=== PATIENT | male | born 1985 | race Caucasian/White ===

== ENCOUNTER 2025-01-23 13:45 | Emergency (ER) | payer OTHER ==
[2025-01-23 13:54] VITALS: RESP 18; TEMP 98.3
--- NOTE | 2025-01-23 14:10 | ED ---
Wound/Laceration HPI - General Chief Complaint: Wound/Laceration Stated Complaint: Facial Injury Time Seen by Provider: 01/23/25 13:57 Source: patient, EMS, RN notes reviewed Mode of arrival: EMS Limitations: no limitations - History of Present Illness Initial Comments: This is a 39-year-old male with history of daily EtOH use presenting for facial injury/pain (12/08) occurring 30 minutes prior to ER arrival. Patient states a 9 stack of sheet-metal slid forward at work, striking him on the right side of the face without loss of consciousness. Endorses contusion/pain around right eye, nose and upper lip. Denies headache, neck pain, other significant injury. Denies use of blood thinners. States tetanus vaccination is not up-to-date. Onset/Timin -: minutes(s) Location: face Place: work Context: accidental Associated Symptoms: pain Treatments Prior to Arrival: bandage, cervical collar - Related Data Previous Rx's Medication Instructions Recorded Cephalexin [Keflex] 500 mg PO Q6HR 1 Days #40 cap 01/23/25 Ibuprofen [Motrin] 800 mg PO Q8HR PRN #30 tab 01/23/25 Allergies Allergy/AdvReac Type Severity Reaction Status Date / Time No Known Allergies Allergy Verified 01/23/25 13:54 Review of Systems ROS Statement: Those systems with pertinent positive or pertinent negative responses have been documented in the HPI. ROS Other: All systems not noted in ROS Statement are negative. Past Medical History Past Medical History: No Reported History Past Surgical History: No Surgical Hx Reported Smoking Status: Vaper Past Alcohol Use History: Daily Past Drug Use History: Marijuana General Exam Limitations: no limitations General appearance: alert, in no apparent distress Head exam: Present: normocephalic, other (Negative Bob sign). Absent: atraumatic (Moderate right facial edema, especially right periorbital, maxillary and perioral region. 1 cm horizontal lacerations noted on the lateral aspect of eye in superior and inferior regions), normal inspection Eye exam: Present: normal appearance, PERRL, EOMI (Extraocular movement intact in all arteaga for bilateral eyes without associated pain), periorbital swelling (Positive right periorbital edema, partially occluding right eye with minor ecchymosis. Patient able to open eye fully with conscious effort), periorbital tenderness (Right periorbital tenderness without obvious crepitus or deformity), other (Negative raccoon eyes). Absent: scleral icterus, conjunctival injection Pupils: Present: normal accommodation. Absent: irregular, unequal ENT exam: Present: normal exam, mucous membranes moist, other (Dried blood noted in bilateral nares and mustache. Left lateral deviation of bridge of nose with associated tenderness noted). Absent: normal oropharynx (Significant inner lower lip laceration, with loss of adherence to significant portion of mandible/gingiva. All upper and lower dentition appears intact without laxity or pain with any tooth palpation/manipulation) Neck exam: Present: normal inspection. Absent: tenderness, meningismus, lymphadenopathy Respiratory exam: Present: normal lung sounds bilaterally. Absent: respiratory distress, wheezes, rales, rhonchi, stridor, accessory muscle use Cardiovascular Exam: Present: regular rate, normal rhythm, normal heart sounds. Absent: systolic murmur, diastolic murmur, rubs, gallop, clicks GI/Abdominal exam: Present: soft, normal bowel sounds. Absent: distended, tenderness, guarding, rebound, rigid Extremities exam: Present: normal inspection, full ROM, normal capillary refill. Absent: tenderness, pedal edema, joint swelling, calf tenderness Back exam: Present: normal inspection. Absent: vertebral tenderness Neurological exam: Present: alert, oriented X3, CN II-XII intact Psychiatric exam: Present: normal affect, normal mood Skin exam: Present: warm, dry, intact, normal color. Absent: rash Course Vital Signs 01/23/25 01/23/25 13:46 18:12 Temperature 98.3 F Pulse Rate 83 72 Respiratory 18 18 Rate Blood Pressure 132/94 136/78 O2 Sat by Pulse 96 98 Oximetry Procedures - Laceration Laceration #1 Consent Obtained: verbal consent Indication: laceration Site: eyelid Size (cm): 2 Description: linear, irregular Depth: simple, single layer Anesthetic Used: lidocaine 1%, with epi Anesthesia Technique: local infiltration Amount (mls): 2 Pre-repair: wound explored, irrigated extensively Type of Sutures: nylon Size of Sutures: 6-0 Number of Sutures: 7 Technique: simple, interrupted Patient Tolerated Procedure: well, no complications Laceration #2 Consent Obtained: verbal consent Indication: laceration Site: lip Size (cm): 6 Description: linear, flap, avulsion, irregular Depth: involves muscle layer Anesthetic Used: lidocaine 1%, with epi Anesthesia Technique: local infiltration Amount (mls): 8 Pre-repair: wound explored, irrigated extensively Type of Sutures: vicryl Size of Sutures: 5-0 Number of Sutures: 8 Technique: simple, interrupted, vertical mattress Complications: bleeding Patient Tolerated Procedure: well, no complications Medical Decision Making - Medical Decision Making Was pt. sent in by a medical professional or institution (, PA, CMA OR LPN, urgent care, hospital, or longterm...) When possible be specific @ -No Did you speak to anyone other than the patient for history (EMS, parent, family, police, friend...)? What history was obtained from this source @ -No Did you review nursing and triage notes (agree or disagree)? Why? @ -I reviewed and agree with nursing and triage notes Were old charts reviewed (outside hosp., previous admission, EMS record, old EKG, old radiological studies, urgent care reports/EKG's, longterm records)? Report findings @ -No old charts were reviewed Differential Diagnosis (chest pain, altered mental status, abdominal pain women, abdominal pain men, vaginal bleeding, weakness, fever, dyspnea, syncope, headache, dizziness, GI bleed, back pain, seizure, CVA, palpatations, mental health, musculoskeletal)? @ -Differential Musculoskeletal Muscular strain, contusion, ligament sprain, fracture, arthritis, septic arthritis, bursitis, cellulitis, muscle spasm, nerve compression, DVT, arterial occlusion, herpes zoster, electrolyte abnormality, tumor.... This is not meant to be in all inclusive list EKG interpreted by me (3pts min.). @ -Not done X-rays interpreted by me (1pt min.). @ -None done CT interpreted by me (1pt min.). @ -Face/brain/C-spine CT shows no acute intracranial process, no acute fracture/subluxation of cervical spine. Comminuted nasal bone fracture and subcutaneous contusion/hematoma in the right periorbital region with no involvement of intraconal fat within the right orbit. U/S interpreted by me (1pt. min.). @ -None done What testing was considered but not performed or refused? (CT, X-rays, U/S, labs)? Why? @ -None What meds were considered but not given or refused? Why? @ -None Did you discuss the management of the patient with other professionals (professionals i.e. , PA, CMA OR LPN, lab, RT, psych nurse, community mental health social worker, supervisor tellers, teacher, protective officer, therapeutic case manager)? Give summary @ -No Was smoking cessation discussed for >3mins.? @ -No Was critical care preformed (if so, how long)? @ -No Were there social determinants of health that impacted care today? How? (Homelessness, low income, unemployed, alcoholism, drug addiction, transportatio n, low edu. Level, literacy, decrease access to med. care, detention, rehab)? @ -No Was there de-escalation of care discussed even if they declined (Discuss DNR or withdrawal of care, Hospice)? DNR status @ -No What co-morbidities impacted this encounter? (DM, HTN, Smoking, COPD, CAD, Cancer, CVA, ARF, Chemo, Hep., AIDS, mental health diagnosis, sleep apnea, morbid obesity)? @ -None Was patient admitted / discharged? Hospital course, mention meds given and route, prescriptions, significant lab abnormalities, going to OR and other pertinent info. @ -Patient initially provided IV normal saline, Dilaudid. Lab work unremarkable. Face/brain/C-spine CT shows no acute intracranial process, no acute fracture/subluxation of cervical spine. Comminuted nasal bone fracture and subcutaneous contusion/hematoma in the right periorbital region with no involvement of intraconal fat within the right orbit. Patient provided additional IV Dilaudid, IM tetanus and p.o. Keflex. Right eye laceration sutured under sterile conditions. Lower, inner lip laceration sutured with good alignment of laceration edges. Patient provided final dose of IV Dilaudid and Toradol for ongoing pain and discharged with T3 starter pack. Final wound care orders provided for RN prior to discharge. Advised RICE and alternate Tylenol/Motrin every 4 hours for pain. Keflex and Motrin sent to patient's pharmacy. Advise return to ER for fever/chills, worsening headache, dizziness, vision changes, lethargy, altered mental status, altered level of consciousness, nausea/vomiting. Follow-up with PCP in the next 24-48 hours for ongoing evaluation and management. Suture wound care instructions provided, advising to follow-up with medical facility in 5 to 7 days for suture removal under right eye. Discussed patient with Dr. Purcell. Undiagnosed new problem with uncertain prognosis? @ -No Drug Therapy requiring intensive monitoring for toxicity (Heparin, Nitro, Insulin, Cardizem)? @ -No Were any procedures done? @ -Lacerations below right eye and lower inner lip sutured and laceration above right eye adhered with Dermabond glue. See procedure note. Diagnosis/symptom? @ -Nasal fracture, right periorbital and lip contusion Acute, or Chronic, or Acute on Chronic? @ -Acute Uncomplicated (without systemic symptoms) or Complicated (systemic symptoms)? @ -Uncomplicated Side effects of treatment? @ -No Exacerbation, Progression, or Severe Exacerbation? @ -No Poses a threat to life or bodily function? How? (Chest pain, [place], [place], pneumonia, PE, COPD, DKA, ARF, appy, cholecystitis, CVA, Diverticulitis, Homicidal, Suicidal, threat to staff... and all critical care pts) @ -No - Lab Data Result diagrams: 01/23/25 14:00 01/23/25 14:00 Lab Results 01/23/25 01/23/25 Range/Units 14:00 14:00 WBC 6.69 (4.50-10.00) 10*3/uL RBC 4.48 (4.40-5.60) 10*6/uL Hgb 14.4 (13.0-17.0) g/dL Hct 39.8 (39.6-50.0) % MCV 88.8 (80.0-97.0) fL MCH 32.1 H (27.0-32.0) pg MCHC 36.2 (32.0-37.0) g/dL Plt Count 213 (140-440) 10*3/uL MPV 9.2 L (9.5-12.2) fL Immature Gran % (Auto) 0.3 % Neutrophils % 73.5 % Lymphocytes % 15.8 % Monocytes % 7.9 % Eosinophils % 1.6 % Basophils % 0.9 % Immature Gran # 0.02 (0.00-0.04) 10*3/uL Neutrophils # 4.91 (1.80-7.70) 10*3/uL Lymphocytes # 1.06 (0.90-5.00) 10*3/uL Monocytes # 0.53 (0.20-1.00) 10*3/uL Eosinophils # 0.11 (0.04-0.35) 10*3/uL Basophils # 0.06 (0.00-0.10) 10*3/uL Sodium 137 (137-145) mmol/L Potassium 4.2 (3.5-5.1) mmol/L Chloride 105 (98-107) mmol/L Carbon Dioxide 19 L (22-30) mmol/L Anion Gap 13 mmol/L BUN 12 (9-20) mg/dL Creatinine 0.67 (0.66-1.25) mg/dL Est GFR (CKD-EPI)AfAm >90 (>60 ml/min/1.73 sqM) Est GFR (CKD-EPI)NonAf >90 (>60 ml/min/1.73 sqM) Glucose 91 (74-99) mg/dL Calcium 8.9 (8.4-10.2) mg/dL Total Bilirubin 0.6 (0.2-1.3) mg/dL AST 32 (17-59) U/L ALT 34 (4-49) U/L Alkaline Phosphatase 59 (38-126) U/L Total Protein 6.7 (6.3-8.2) g/dL Albumin 4.3 (3.5-5.0) g/dL Disposition Clinical Impression: Nasal fracture, Laceration of lower lip, Laceration of right eyelid without complication Disposition: HOME SELF-CARE Condition: Fair Instructions (If sedation given, give patient instructions): Care For Your Stitches (ED), Nasal Fracture (ED), Care For Your Absorbable Stitches (ED), Facial Contusion (ED) Additional Instructions: Apply cold compress to face for 10 minutes up to 4 times daily as needed for swelling. Keep external sutures clean with antibacterial soap and water and antibiotic ointment with dressing change at least twice daily. Swish mouth with warm salt water at least twice daily as needed. Alternate Tylenol/Motrin every 4 hours for pain. Follow-up with medical facility in 5-7 days for suture removal below eye. Follow-up with primary care in the next 24-48 hours for further evaluation. Return to ER if experiencing worsening headache, dizziness, vision changes, altered mental status, altered level of consciousness, nausea/vomiting. Prescriptions: Cephalexin [Keflex] 500 mg PO Q6HR 1 Days #40 cap Ibuprofen [Motrin] 800 mg PO Q8HR PRN #30 tab PRN Reason: Pain Is patient prescribed a controlled substance at d/c from ED?: No Referrals: None,Stated [Primary Care Provider] - 1-2 days Sha Herman MD [STAFF PHYSICIAN] - 1-2 days [facility] [Provider Group] - 1-2 days Time of Disposition: 17:56
[2025-01-23] MEDS: HYDROmorphone 1 MG/ML 1 ML SYRINGE IVP STA ×2 (14:13→17:01)
[2025-01-23] MEDS: SODIUM CHLORIDE 0.9% 500 ML 500 ML IV STA (14:18)
[2025-01-23] MEDS: TOPICAL SKIN ADHESIVE 1 EACH AMP TOPICAL ONE (14:22)
[2025-01-23] MEDS: LIDOCAINE 1%-EPI 1:100,000 20 ML VIAL SQ STA (14:22)
[2025-01-23 14:25] LABS: Basophils # (A) 0.06 10*3/uL (0.00-0.10); Basophils % (A) 0.9 %; Eosinophils # (A) 0.11 10*3/uL (0.04-0.35); Eosinophils % (A) 1.6 %; HCT 39.8 % (39.6-50.0); HGB 14.4 g/dL (13.0-17.0); Lymphocytes # (A) 1.06 10*3/uL (0.90-5.00); Lymphocytes % (A) 15.8 %; MCH 32.1 pg (27.0-32.0); MCHC 36.2 g/dL (32.0-37.0); MCV 88.8 fL (80.0-97.0); Monocytes # (A) 0.53 10*3/uL (0.20-1.00); Monocytes % (A) 7.9 %; Neutrophils # (A) 4.91 10*3/uL (1.80-7.70); Neutrophils % (A) 73.5 %; Platelet Count 213 10*3/uL (140-440); RBC 4.48 10*6/uL (4.40-5.60); RDW 12.2 % (11.5-14.5); WBC 6.69 10*3/uL (4.50-10.00)
[2025-01-23 14:51] LABS: ALT 34 U/L (4-49); AST 32 U/L (17-59); African American GFR (CKD) >90 (>60 ml/min/1.73 sqM); Albumin 4.3 g/dL (3.5-5.0); Alkaline Phosphatase 59 U/L (38-126); Anion Gap 13 mmol/L; Blood Urea Nitrogen 12 mg/dL (9-20); Calcium 8.9 mg/dL (8.4-10.2); Carbon Dioxide 19 mmol/L (22-30); Chloride 105 mmol/L (98-107); Glucose 91 mg/dL (74-99); Non-African American GFR(CKD) >90 (>60 ml/min/1.73 sqM); Potassium 4.2 mmol/L (3.5-5.1); Sodium 137 mmol/L (137-145); Total Protein 6.7 g/dL (6.3-8.2)
--- NOTE | 2025-01-23 15:29 | CT ---
EXAMINATION TYPE: CT brain cspine wo con, CT facial bones wo con DATE OF EXAM: 01/23/2025 3:02 PM COMPARISON: None. CLINICAL INDICATION: Male, 39 years old with history of pain; hit in face with sheet metal TECHNIQUE: Brain: Multiple axial CT images of the brain were obtained without IV contrast. Cspine: Axial CT images from the skull base to the inferior aspect of T2 we obtained without intraven ous contrast. Coronal and sagittal reformatted images were also reviewed. . CT DLP: 1196.3 (accession [id number]), 771.3 (accession [id number]) mGycm, Automated exposure control for dose reduction was used. FINDINGS: Facial bones: Comminuted depressed bilateral nasal bone fractures. No additional acute fracture or dislocation. Pte rygoid processes are patent. Circumferential mucosal thickening of the maxillary sinuses, ethmoid air cells and floor of the frontal sinuses. Mucosal thickening involving the sphenoid sinuses also prese nt. Mastoid air cells appear patent. There is soft tissue swelling/edema anterior to the right orbit (63/94). No definite unexpected radiopaque foreign body identified. Globes appear intact and there is no abnormality within the intraconal fat bilaterally. Brain: Extra-axial spaces: No abnormal extra-axial fluid collections. Ventricular system: Within normal limits Cerebral parenchyma: No acute intraparenchymal hemorrhage or mass effect. The sauer-white junction is well differentiated. Cerebellum: Unremarkable. Mass effect: No evidence of midline shift. Intracranial vasculature: unremarkable Soft tissues: Normal. Calvarium/osseous structures: No depressed skull fracture. Paranasal sinuses and mastoid air cells: Clear. Visualized orbits: Orbital contents are intact. Cervical spine: Fracture: None. Osseous structures: Unremarkable Vertebral alignment: Within normal limits. Spinal canal/Neural Foramina: No evidence of high-grade spinal canal or neural foraminal stenosis. Neck soft tissues: Prevertebral soft tissues are within normal limits. Other: The airway is patent. The lung apices are clear. IMPRESSION: 1. No acute intracranial process. 2. No acute fracture or traumatic subluxation of the cervical spine. 3. Comminuted nasal bone fractures and subcutaneous contusion/hematoma in the right periorbital tomas on. No involvement of the intraconal fat within the right orbit. 4. Paranasal sinus disease as described above. [facility], , 01/23/2025 3:26 PM
[2025-01-23] MEDS: CEPHALEXIN 500 MG CAP PO STA (17:00)
[2025-01-23] MEDS: ACET/COD 300 MG/30 MG STARTER PACK TAB BTL PO STA (17:02)
[2025-01-23] MEDS: DIPH,PERTUS(ACELL)TETVAC-LF 0.5 ML VIAL IM ONE (17:02)
[2025-01-23] MEDS ORDERED: KETOROLAC 15 MG/ML 1 ML VIAL IVP STA (17:48)
[2025-01-23] MEDS ORDERED: HYDROmorphone 1 MG/ML 1 ML SYRINGE IVP STA (17:48)
[2025-01-23 18:13] VITALS: BP 136/78; PULSE 72
== END 2025-01-23 18:13 | disposition home or self-care (01) ==
LOC: EC 13:45
DX: S02.2XXA Fracture of nasal bones, initial encounter for closed fracture (principal); S01.111A Laceration without foreign body of right eyelid and periocular area, initial encounter; S01.511A Laceration without foreign body of lip, initial encounter; F17.290 Nicotine dependence, other tobacco product, uncomplicated; Z23 Encounter for immunization; W22.8XXA Striking against or struck by other objects, initial encounter; Y99.0 Civilian activity done for income or pay
CPT/HCPCS: 36415; 80053; 85025; 72125; 70486; 70450; 90715; 99284; 96374; 96376; 90471; 12015; J1171